=== PATIENT | female | born 1990 | race Caucasian/White ===

== ENCOUNTER 2023-10-30 09:09 | Day surgery (SDC) | payer MEDICAID, SELFPAY ==
[2023-10-30] VITALS (9 sets, daily range): BP systolic 109–128; BP diastolic 73–102; PULSE 56–82; RESP 16; TEMP 36.3–36.7; O2SAT 94–97; BMI 35.5
[2023-10-30] MEDS: Lactated Ringers 1,000 ML 15 ML IV (09:33)
--- NOTE | 2023-10-30 09:34 | PCM.HP.BLA ---
History and Physical Date of Admission: 10/30/23 The patient is examined and there are no changes to the H&P dated 10/06/2023. She presents for excision of a cyst of her right cheek. Informed consent was obtained. 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
--- NOTE | 2023-10-30 09:42 | PRE.ANES_ITS ---
ASA Classification* ASA Classification ASA Classification: 2 Assessment & Plan Anesthesia* Anesthesia Assessment Anesthesia Assessment: Discussed sedation and/or anesthesia options, risks, benefits, and alternatives with patient/parents/legal guardian/POA. Questions invited. The patient/parents/legal guardian/POA seems to understand and agrees to proceed with anesthesia plan. Reviewed the physical assessment, medical history, allergy history and patient home medications list prior to surgery/procedure/anesthetic and documented any changes. Performed airway and anesthesia risk assessments. Anesthesia Type Anesthesia Type: General History Source History Obtained from:: Patient and Chart Anesthesia Focused Assessment* Temperature: 97.5 F Pulse Rate: 81 Blood Pressure: 128/102 Respiratory Rate: 16 Pulse Ox: 95 Oxygen Delivery Method: Room Air Airway Assessment Mouth opens: >3 cm Mallampati Score: II Teeth Condition: Missing (Patient is edentulous.) Neck Range of motion (ROM): Full ROM Focused Labs Anesthesia Preop lab: CBC CHEMISTRY COAG Urine Test Pending 10/30/23 09:26 Pre-Assessment Diagnosis/Proposed Procedure Planned Operative Procedure(s): EXCISION ON CYST RIGHT CHEEK Anesthesia History Anesthesia History - multi skilled operator: Anesthesia History - multi skilled operator Hx Hospitalization No 10/22/23 14:34 Any Problems With Anesthesia Yes: AWAKENED DURING 10/22/23 14:34 SURGERY Cholinesterase deficiency No 10/22/23 14:34 You/Your Family Experience No 10/22/23 14:34 fever (hyperthermia) with Relationship Recent Exposure to Contagious No 10/30/23 09:29 Disease Does patient have nerve No 10/22/23 14:34 stimulator Patient instructed to have device shut off --Does patient have Pacemaker No 10/30/23 09:29 or ICD? When Was Last Pacemaker Check QUESTION #4 FULL TEXT: You/Your Family Experience fever (hyperthermia) with Anesthesia Last Oral Intake Last Oral intake: Last Oral Intake NPO since 00:00 10/30/23 09:29 Meds taken in AM with sips of water? Meds patient instructed to take am of surgery PONV PONV - multi skilled operator: PONV - multi skilled operator Female Yes 10/22/23 14:34 HX of Motion Sickness No 10/22/23 14:34 HX of N/V After Surgery No 10/22/23 14:34 Non-Smoker No 10/22/23 14:34 Duration of Surgery greater Yes 10/22/23 14:34 than 60 minutes Number of Risk Factors 2 10/22/23 14:34 PONV Score Moderate Risk 10/22/23 14:34 Height & Weight Height & Weight: Anesthesia: Height & Weight Height 5 ft 4 in 10/30/23 09:29 Weight: 93.894 kg 10/30/23 09:29 Body Mass Index (BMI) 35.5 10/30/23 09:29 Respiratory Assessment Respiratory Assessment - multi skilled operator: Respiratory Tract Infection Hx - multi skilled operator Hx Respiratory Tract Infection No 10/22/23 14:34 STOP Sleep Apnea STOP Sleep Apnea - multi skilled operator: STOP Sleep Apnea - multi skilled operator Hx Hypertension Yes: NO MED FOR 2 YRS 10/22/23 14:34 Hx Sleep Apnea No 10/22/23 14:34 CPAP BIPAP Do you snore loudly (louder No 10/22/23 14:34 than talking or can be heard Do you often feel tired/ No 10/22/23 14:34 fatigued/ sleepy during daytime? Has anyone observed you stop No 10/22/23 14:34 breathing during sleep? STOP Results Negative 10/22/23 14:34 QUESTION #5 FULL TEXT : Do you snore loudly (louder than talking or can be heard through closed doors)? 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 Specify any problems Hx of Preganancy in last 3 No 10/22/23 14:34 Months Nurse Filling Out Transfusion DSCHRIBER 10/22/23 14:34 & Questions: Date: 10/22/23 10/22/23 14:34 Time: 14:35 10/22/23 14:34 Patient unable to answer at this time (ie. confused, unrespo /Reproduction History /Reproductive History - multi skilled operator: /Reproductive Hx- multi skilled operator Hx Now No 10/22/23 14:34 Gestational Age (in weeks): EDC: Hx Hx Para Hx Section SAB No 10/22/23 14:34 Active Medications Active Medications: Current Medications Generic Name Dose Route Start Last Admin Trade Name Freq PRN Reason Stop Dose Admin Cefazolin Sodium 2 gm/ Sodium 110 mls @ 150 mls/hr 10/30/23 10:40 Chloride IV 10/30/23 11:23 PREOP ONE Lactated Ringer's 1,000 mls @ 15 mls/hr 10/30/23 09:30 10/30/23 09:33 IV 15 mls/hr .Q48H ELISSA Administration PFSH Medical History (Updated 10/22/23 @ 14:40 by Kathya Mathias) Wears glasses Depression Anxiety History of steroid therapy Headache Shortness of breath on exertion Smoker Hypertension Home Medications ?Medication ?Instructions ?Recorded ?Last Taken ?Type NK 10/20/23 Unknown History Allergy/AdvReac Type Severity Reaction Status Date / Time shellfish derived Allergy Mild Itching Verified 10/30/23 09:28 Family History (Updated 10/20/23 @ 10:54 by Sarah Biggs) Mother Anxiety Arthritis Heart disease Hypertension High cholesterol CVA (cerebral vascular accident) Grandfather Colon cancer Aunt Breast cancer Uterine cancer Ovarian cancer Grandmother Arthritis Cancer lung Surgical History (Updated 10/22/23 @ 14:40 by Kathya Mathias) Hx of adenoidectomy History of excision of lesion History of cholecystectomy Social History (Updated 10/20/23 @ 10:45 by Sarah Biggs) Smoking Status: Current every day smoker (Patient did not smoke today.) tobacco type: cigarettes alcohol intake: never substance use type: does not use additional social history: denies vaping, denies edibles, denies marijuana , ibuprofen as prn, denies aspirin use smoker-1/2 pack for 17 years Addt'l Information Additional Findings: Patient feels like she woke up early in previous surgeries. Review of Systems (Anesthesia) ROS Narrative System reviewed and no additional complaints, except as documented.
[2023-10-30 10:00] LABS: Internal QC Validated? YES +Cl - CLEAR BKGD; Pregnancy, Urine Negative Negative
[2023-10-30] MEDS: Cefazolin 2 GM in 0.9% Normal Saline (100mL Bag) 100 ML IV (10:15)
--- NOTE | 2023-10-30 10:40 | LES_PTH ---
PATIENT: HARDIK GARCIA LOC: [facility] [place] U#:[id number] AGE/SX: 33/F ROOM: RE10/30/[address]: Dr. 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 AZAR/ 11/04/2023 MICROSCOPIC DESCRIPTION Slides are reviewed. GROSS DESCRIPTION Received in fixative is one container labeled with the patient's name and designated Connective tissue mass right cheek. The specimen consists of a piece of lai-white skin with underlying tissue. The skin piece measures 2.5 x 0.9cm and underlying tissue measures 2.5 x 2.0 x 2.5cm. This specimen is inked, serially sectioned and reveal a solid cystic nodule with underlying tissue. The entire specimen is submitted in six cassettes. 11/03/2023 TC:5 CPT:12903
[2023-10-30] MEDS: Lidocaine 1% /Epi 1:100 (20ml) 20 ML Vial (11:00)
--- NOTE | 2023-10-30 11:15 | DCINST_ITS ---
Discharge Instructions Dressing / Incision Additional Dressing/Incision Instructions:: Keep your back elevated (recliner position) at night until seen back in the office. Take the oral antibiotic (Keflex) 2 times a day until finished. Keep the tape dry??do not remove until seen in the office. Follow Up Care Please Follow Up With: Violeta Nagy MD Test Results: Test results from this visit will be discussed in further detail at your follow- up appointment, if applicable. Discharge Plan Admission Attending Provider: Violeta Nagy Primary Care Provider: Care Physician,No Primary Instructions Print Language: Tristanian Discharge Orders/Prescriptions Prescriptions: New cephalexin 500 mg capsule 500 mg PO BID 7 Days Qty: 14 0RF Disposition Disposition (needs filled in before D/C Order can be placed): Home, Self Care
--- NOTE | 2023-10-30 11:18 | PCM.OPRPT ---
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 She presents for excision of the mass with submission for pathologic evaluation. The patient was brought to the operating room and placed under general anesthesia in the supine position. The right face is prepped and draped in usual sterile fashion. We initially began with making an elliptical incision over top of the mass. Dissection then carried down through the subcutaneous tissue to enucleate the mass. Care is taken to confirm the character of the tissue before it is dissected from the wall of the mass. Care is taken to control hemostasis with minimal electrocautery. In this way, the mass is completely enucleated from its bed. The wound is then closed in layers using Vicryl suture in the subcutaneous tissue. The dermis and skin are then closed in 2 layers using a V-Loc suture. Dermabond and Steri-Strips were placed on the wound. She tolerated the procedure well was taken to the recovery area in an awake and stable condition. Needle and sponge counts are correct. Complications None Admit VTE Documentation VTE Mechan Device Prophylaxis: SCD's
--- NOTE | 2023-10-30 11:19 | PCM.POST.ANE ---
Anesthesia: Postop Eval I Current Vital Signs Temperature: 98 F Pulse Rate: 78 Blood Pressure: 119/85 Respiratory Rate: 16 Pulse Ox: 96 Oxygen Delivery Method: Room Air Assessment Airway patent: Yes Spontaneous unlabored respirations: Yes Mental status: Awake and Calm nausea: No Vomiting: No Anesthesia Complication: No Fluid Hydration Crystalloid volume administer (ml): 900 Total IV fluid infused: 900 Progress Note Anesthesia document: Postop Eval 1 completed: Yes
--- NOTE | 2023-10-30 13:09 | POSTOPAN2_ITS ---
Anesthesia Postop Eval I Sum Postop Eval Completion status Anesthesia document: Postop Eval 1 completed: Yes Anesthesia Postop Eval I Summary Anesthesia Postop Eval I Summary: Anesthesia Postop Eval I: Assessment Summary Airway patent Yes 10/30/23 11:20 HIGH SCHOOL MUSIC INSTRUCTOR.SKOBY Spontaneous unlabored Yes 10/30/23 11:20 HIGH SCHOOL MUSIC INSTRUCTOR.GADIEL respirations Mental status Awake,Calm 10/30/23 11:20 HIGH SCHOOL MUSIC INSTRUCTOR.SKOBY nausea No 10/30/23 11:20 HIGH SCHOOL MUSIC INSTRUCTOR.BELKISOBY Vomiting No 10/30/23 11:20 HIGH SCHOOL MUSIC INSTRUCTOR.BELKISOBGeovanny Anesthesia Postop Eval I: Fluid Summary Crystalloid volume administer 900 10/30/23 11:20 HIGH SCHOOL MUSIC INSTRUCTOR.SKOBY (ml) Colloids volume administered ( ml) Blood Product volume administered (ml) Total IV fluid infused 900 10/30/23 11:20 HIGH SCHOOL MUSIC INSTRUCTOR.BELKISOBGeovanny Anesthesia Postop Eval I: Summary Notes Anesthesia Complication No 10/30/23 11:20 HIGH SCHOOL MUSIC INSTRUCTOR.GADIEL Anesthesia Complication Comment: Post-operative progress note Anesthesia: Postop Eval II Evaluation Mental status: Awake and Calm Pain Level: 1 nausea: No Vomiting: No Complications Anesthesia Complication: No
--- NOTE | 2023-10-30 13:09 | PCM.POSTANE2 ---
Anesthesia Postop Eval I Sum Postop Eval Completion status Anesthesia document: Postop Eval 1 completed: Yes Anesthesia Postop Eval I Summary Anesthesia Postop Eval I Summary: Anesthesia Postop Eval I: Assessment Summary Airway patent Yes 10/30/23 11:20 HOGSHEAD DUMPER.SKOBY Spontaneous unlabored Yes 10/30/23 11:20 HOGSHEAD DUMPER.GADIEL respirations Mental status Awake,Calm 10/30/23 11:20 HOGSHEAD DUMPER.SKOBY nausea No 10/30/23 11:20 HOGSHEAD DUMPER.BELKISOBY Vomiting No 10/30/23 11:20 HOGSHEAD DUMPER.BELKISOBGeovanny Anesthesia Postop Eval I: Fluid Summary Crystalloid volume administer 900 10/30/23 11:20 HOGSHEAD DUMPER.SKOBY (ml) Colloids volume administered ( ml) Blood Product volume administered (ml) Total IV fluid infused 900 10/30/23 11:20 HOGSHEAD DUMPER.BELKISOBGeovanny Anesthesia Postop Eval I: Summary Notes Anesthesia Complication No 10/30/23 11:20 HOGSHEAD DUMPER.GADIEL Anesthesia Complication Comment: Post-operative progress note Anesthesia: Postop Eval II Evaluation Mental status: Awake and Calm Pain Level: 1 nausea: No Vomiting: No Complications Anesthesia Complication: No
== END 2023-10-30 12:40 | disposition home or self-care (01) ==
LOC: SDC 09:10 → AC 09:12
PROVIDERS: Anesthesiology; Referring Provider Plastic Surgery; Visit Provider Plastic Surgery
PROC: (CPT 11444; principal; 2023-10-30 10:30)
DX: D48.19 Other specified neoplasm of uncertain behavior of connective and other soft tissue (principal); F17.210 Nicotine dependence, cigarettes, uncomplicated; I10 Essential (primary) hypertension; Z90.49 Acquired absence of other specified parts of digestive tract
CPT/HCPCS: 11444; 00300; 81025; 88305; J7120; J2405